=== PATIENT | female | born 1995 | race Two or more races ===

== ENCOUNTER 2024-10-02 11:20 | Outpatient (CLI) | payer OTHER | END 2024-10-02 11:33 | disposition home or self-care (01) | LOC: PRENATAL 11:20 | PROVIDERS: ATTEND Obstetrics & Gynecology Maternal & Fetal Medicine | DX: O44.00 Complete placenta previa NOS or without hemorrhage, unspecified trimester (principal); Z3A.20 20 weeks gestation of pregnancy ==

== ENCOUNTER 2024-10-25 10:43 | Outpatient (CLI) | payer OTHER | END 2024-10-25 16:33 | disposition home or self-care (01) | LOC: PRENATAL 10:43 | PROVIDERS: ATTEND Obstetrics & Gynecology Maternal & Fetal Medicine | DX: Z76.1 Encounter for health supervision and care of foundling (principal) ==

== ENCOUNTER → 2024-12-04 09:09 | Outpatient (CLI) | payer OTHER | END | disposition home or self-care (01) | LOC: PRENATAL 09:09 | PROVIDERS: ATTEND Obstetrics & Gynecology Maternal & Fetal Medicine | DX: O26.849 Uterine size-date discrepancy, unspecified trimester (principal); O36.8199 Decreased fetal movements, unspecified trimester, other fetus; O44.00 Complete placenta previa NOS or without hemorrhage, unspecified trimester; Z3A.29 29 weeks gestation of pregnancy ==

== ENCOUNTER 2024-12-07 03:09 | Inpatient (IN) | payer OTHER ==
[2024-12-07] VITALS (11 sets, daily range): BP systolic 71–118; BP diastolic 42–69; O2SAT 100
[~2024-12-07] VITALS: Ht 154.9 cm; Wt 49.9 kg
[2024-12-07] MEDS ORDERED: PRENATAL CAPLE1 EAC1 PO (03:11)
[2024-12-07] MEDS ORDERED: AMPICILLIN SODIUM 2,000 MG VIAL IV SCH (03:13)
[2024-12-07] MEDS ORDERED: TERBUTALINE SULFATE 1 MG/ML AMPUL SUBCUTANEO SCH (03:15)
[2024-12-07] MEDS ORDERED: RINGERS SOLUTION,LACTATED 1,000 ML IV SCH (03:15)
[2024-12-07] MEDS ORDERED: MAGNESIUM SULFATE IN WATER 0.04 GM/ML IV.SOLN IV ONE (03:35)
[2024-12-07] MEDS ORDERED: MAGNESIUM SULFATE IN WATER 4 GM/100 ML PIGGYBACK IV ONE (03:35)
[2024-12-07 04:43] LABS: BASO % 0.2 % (0.1-1.2); EOS # 0.03 (0.04-0.54); EOS % 0.3 % (0.7-7.0); HEMATOCRIT 28.5 % (34.1-44.9); HEMOGLOBIN 9.5 g/dL (11.2-15.7); LYMPH # 1.94 (1.18-3.74); LYMPH % 20.1 % (19.3-53.1); MONO # 0.84 (0.24-0.82); MONO % 8.7 % (4.7-12.5); NEUT # 6.75 (1.56-6.13); NEUT % 70.2 % (34.0-71.1); PLATELET COUNT 221 K/uL (163-369); RED BLOOD COUNT 3.39 M/uL (3.93-5.22); URINE APPEARANCE Clear; URINE BILIRRUBIN Negative (NEGATIVE); URINE BLOOD Negative; URINE COLOR Yellow; URINE GLUCOSE Negative (NEGATIVE); URINE KETONE Negative (NEGATIVE); URINE LEUKOCYTE Negative; URINE NITRATE Negative; URINE PROTEIN Negative (NEGATIVE)
[2024-12-07] MEDS ORDERED: MAGNESIUM SULFATE IN WATER 100 ML IV SCH (04:45)
[2024-12-07] MEDS ORDERED: MAGNESIUM SULFATE IN WATER 25 ML IV SCH (04:45)
[2024-12-07 04:47] LABS: URINE BACTERIA 91.7 uL (0.0-1933); URINE EPITHELIAL CELLS 5.6 uL (0.0-38.8)
[2024-12-07 05:15] LABS: URINE CAST 0.14 uL (0.0-1.40); URINE RBC 0.5 uL (0.0-20.8); URINE WBC 0.9 uL (0.0-23.2)
[2024-12-07] MEDS ORDERED: MAGNESIUM SULFATE IN WATER 500 ML IV SCH (10:45)
[2024-12-07] MEDS ORDERED: ACETAMINOPHEN 500 MG GEL..CAP PO ONE (19:15)
[2024-12-08] MEDS ORDERED: DIPHENHYDRAMINE HCL 50 MG/ML VIAL 1ML ONE (01:34)
[2024-12-08] MEDS ORDERED: DIPHENHYDRAMINE HCL 50 MG/ML VIAL 1ML IV ONE (02:30)
[2024-12-08 03:56] VITALS: BP 96/62
[2024-12-08] MEDS ORDERED: NIFEDIPINE 30 MG TAB.SA.OSM PO ONE (04:18)
[2024-12-08] MEDS ORDERED: NIFEDIPINE 30 MG TAB.SA.OSM PO SCH (04:45)
[2024-12-08 07:45] VITALS: BP 91/85
[2024-12-08 10:53] VITALS: BP 86/53
== END 2024-12-08 14:33 | disposition home or self-care (01) | DRG 833 ==
LOC: LDR 03:09
PROVIDERS: ADMIT Obstetrics & Gynecology Obstetrics; ATTEND Obstetrics & Gynecology Obstetrics
PROC: 4A1HXCZ Monitoring of Products of Conception, Cardiac Rate, External Approach (ICD-10-PCS; principal; 2024-12-07)
PROC: BY4FZZZ Ultrasonography of Third Trimester, Single Fetus (ICD-10-PCS; 2024-12-07)
DX: O60.03 Preterm labor without delivery, third trimester (principal); Z3A.29 29 weeks gestation of pregnancy

== ENCOUNTER → 2025-01-09 09:48 | Outpatient (CLI) | payer OTHER ==
[~2025-01-09 09:48] MED LIST: PRENATAL CAPLE1 EAC1 PO
== END | disposition home or self-care (01) ==
LOC: PRENATAL 09:48
PROVIDERS: ATTEND Obstetrics & Gynecology Maternal & Fetal Medicine
DX: O26.849 Uterine size-date discrepancy, unspecified trimester (principal); O36.8199 Decreased fetal movements, unspecified trimester, other fetus; O99.019 Anemia complicating pregnancy, unspecified trimester; O44.00 Complete placenta previa NOS or without hemorrhage, unspecified trimester

== ENCOUNTER → 2025-01-22 09:01 | Outpatient (CLI) | payer OTHER | END | disposition home or self-care (01) | LOC: PRENATAL 09:01 | PROVIDERS: ATTEND Obstetrics & Gynecology Maternal & Fetal Medicine | DX: Z76.1 Encounter for health supervision and care of foundling (principal) ==